=== PATIENT | female | born 1965 | race Caucasian/White ===

== ENCOUNTER 2021-11-14 09:31 | Observation (INO) ==
[2021-11-14] MEDS ORDERED: CeFAZolin Syr 2,000MG/20 ML 2,000 MG/20 ML SYRINGE IVPB ONE (09:52)
[2021-11-14] MEDS ORDERED: Ringers Solution, Lactated 1,000 ML IVC SCH ×2 (10:00→19:02)
[2021-11-14] MEDS ORDERED: tiZANidine 4 MG TABLET PO ONE (10:05)
[2021-11-14] MEDS ORDERED: Gabapentin 300 MG CAPSULE PO ONE (10:05)
[2021-11-14] MEDS ORDERED: Acetaminophen IV 1,000 MG/100 ML BAG IVPB ONE (10:05)
[2021-11-14] MEDS ORDERED: *HR* OxyCODONE Immed Rel 5 MG TABLET PO ONE (10:06)
[2021-11-14] MEDS ORDERED: Ondansetron 4 MG/2 ML VIAL ONE (10:08)
[2021-11-14] MEDS ORDERED: *HR* Rocuronium Bromide 50 MG/5 ML VIAL ONE (10:08)
[2021-11-14] MEDS ORDERED: Lidocaine -MPF 2% 5 ML VIAL ONE (10:08)
[2021-11-14] MEDS ORDERED: Polymyxin B Sulfate 500,000 UNIT, Sodium Chloride IRRigation 1,000 ML IR ONE (11:30)
[2021-11-14] MEDS ORDERED: *HR* FentaNYL (PF) 100 MCG/2 ML VIAL ONE (12:28)
[2021-11-14] MEDS ORDERED: *HR* Midazolam HCl 2 MG/2 ML VIAL ONE (12:28)
[2021-11-14] MEDS ORDERED: *HR* Propofol 200 MG/20 ML VIAL IVP ONE (12:55)
[2021-11-14] MEDS ORDERED: Vancomycin 1,000 MG VIAL ONE (13:29)
[2021-11-14] MEDS ORDERED: *HR* Remifentanil 1 MG VIAL IVP ONE (14:35)
[2021-11-14] MEDS ORDERED: EPHEDrine 50 MG/ML VIAL ONE (14:48)
[2021-11-14] MEDS ORDERED: *HR* HYDROMORPHONE 2 MG/ML VIAL ONE (15:01)
[2021-11-14] MEDS ORDERED: Sugammadex Sodium 200 MG/2 ML VIAL IV ONE (16:25)
[2021-11-14] MEDS: *HR* HYDROmorphone PF 0.5 MG/0.5 ML SYRINGE IVP PRN ×4 (17:19→17:47)
[2021-11-14] MEDS ORDERED: Promethazine 6.25 MG in Water for inj. (sterile) 20 ML IVPB PRN (17:23)
[2021-11-14] MEDS ORDERED: Ondansetron 4 MG/2 ML VIAL IVP PRN (19:02)
[2021-11-14] MEDS ORDERED: INSULIN NPH HUM SQ SCH (19:02)
[2021-11-14] MEDS ORDERED: Naloxone 0.4 MG/ML INJ IVP PRN (19:02)
[2021-11-14] MEDS ORDERED: [UNRECOGNIZED DRUG - OTHER] SQ SCH (19:02)
[2021-11-14] MEDS ORDERED: Nitroglycerin 0.4 MG TAB.SUBL SL PRN (19:02)
[2021-11-14] MEDS ORDERED: REG INSULIN SQ SCH (19:02)
[2021-11-14] MEDS: Pregabalin 50 MG CAPSULE PO SCH (19:57)
[2021-11-14] MEDS: Metoprolol XL (24 HR) Succ 25 MG TAB.ER.24H PO SCH (19:58)
[2021-11-14] MEDS: *HR* HYDROcodone/Acet 5/325 mg TABLET PO PRN (19:58)
[2021-11-14] MEDS: *HR* OxyCODONE Immed Rel 5 MG TABLET PO PRN (21:12)
[2021-11-14] MEDS: CeFAZolin 2 GM/120 ML BAG IVPB SCH (21:19)
[2021-11-15] MEDS: *HR* GlyBURIDE 5 MG TABLET PO SCH ×3 (00:08→16:55)
[2021-11-15] MEDS: *HR* OxyCODONE Immed Rel 5 MG TABLET PO PRN ×5 (01:14→20:43)
[2021-11-15] MEDS: *HR* HYDROcodone/Acet 5/325 mg TABLET PO PRN ×3 (03:28→19:41)
[2021-11-15] MEDS: CeFAZolin 2 GM/120 ML BAG IVPB SCH (04:42)
[2021-11-15] MEDS: BuPROPion SR (12 HR) 150 MG TABLET PO SCH (09:05)
[2021-11-15] MEDS: Metoprolol XL (24 HR) Succ 25 MG TAB.ER.24H PO SCH ×2 (09:05→19:41)
[2021-11-15] MEDS: Pregabalin 50 MG CAPSULE PO SCH ×2 (09:06→19:41)
[2021-11-15] MEDS: Aspirin Enteric Coated 81 MG Tablet PO SCH (09:08)
[2021-11-15] MEDS: Insulin LISPRO 300 UNITS/3 ML VIAL SUBQ SCH ×3 (09:08→16:55)
[2021-11-15] MEDS: diazePAM 10 MG TABLET PO PRN ×2 (13:02→22:24)
[2021-11-15] MEDS: Acetaminophen 325 MG TABLET PO PRN ×2 (14:41→22:24)
[2021-11-15] MEDS ORDERED: Temazepam 15 MG CAPSULE PO PRN (20:08)
[2021-11-15] MEDS ORDERED: Insulin LISPRO 300 UNITS/3 ML VIAL SUBQ SCH (21:00)
[2021-11-16] MEDS: *HR* OxyCODONE Immed Rel 5 MG TABLET PO PRN ×3 (00:38→08:53)
[2021-11-16] MEDS: *HR* HYDROcodone/Acet 5/325 mg TABLET PO PRN ×2 (02:45→11:27)
[2021-11-16] MEDS: Metoprolol XL (24 HR) Succ 25 MG TAB.ER.24H PO SCH (08:50)
[2021-11-16] MEDS: Aspirin Enteric Coated 81 MG Tablet PO SCH (08:51)
[2021-11-16] MEDS: BuPROPion SR (12 HR) 150 MG TABLET PO SCH (08:51)
[2021-11-16] MEDS: Pregabalin 50 MG CAPSULE PO SCH (08:51)
[2021-11-16] MEDS: Insulin LISPRO 300 UNITS/3 ML VIAL SUBQ SCH (08:52)
[2021-11-16 10:27] VITALS: BP 121/66; PULSE 106; TEMP 99.7; O2SAT 94
[2021-11-16] MEDS: *HR* GlyBURIDE 5 MG TABLET PO SCH (11:27)
== END 2021-11-16 11:42 | disposition home or self-care (01) ==
LOC: 4WAOSI 09:31 → SDCAOSI 09:31 → 4WAOSI 18:28
PROVIDERS: ADMIT Orthopaedic Surgery Orthopaedic Surgery of the Spine; ATTEND Orthopaedic Surgery Orthopaedic Surgery of the Spine